=== PATIENT | female | born 1975 | race Caucasian/White ===

== ENCOUNTER 2018-10-01 05:38 | Inpatient (IN) | payer BC ==
[~2018-10-01] VITALS: Ht 172.7 cm; Wt 84.1 kg
[~2018-10-01 05:38] MED LIST: CeFAZolin 2 GM/DEXTROSE 50 ML IV ONE; RINGERS SOLUTION,LACTATED 1,000 ML IV ONE
[2018-10-01] MEDS ORDERED: CeFAZolin 2 GM/DEXTROSE 50 ML IV ONE (06:00)
[2018-10-01] MEDS ORDERED: RINGERS SOLUTION,LACTATED 1,000 ML IV ONE ×2 (06:00→08:28)
[2018-10-01] MEDS ORDERED: CALC-1038 PO (06:12)
[2018-10-01] MEDS ORDERED: GLUC100019 PO (06:12)
[2018-10-01] MEDS ORDERED: MAGN200T4 PO (06:12)
[2018-10-01] MEDS ORDERED: CHOL20004 PO (06:12)
[2018-10-01] MEDS ORDERED: LIDOCAINE 2%/EPI 1:200,000/PF 20 ML VIAL ONE (06:50)
[2018-10-01] MEDS ORDERED: BUPIVACAINE HCL/PF 0.5% 30 ML VIAL ONE (06:51)
[2018-10-01] MEDS ORDERED: ACETAMINOPHEN 1000 MG/ISO-OSM 100 ML IV ONE (07:52)
[2018-10-01] MEDS ORDERED: MEPERIDINE-PF 25 MG/ML VIAL IVP PRN (08:00)
[2018-10-01] MEDS ORDERED: OXYGEN THERAPY IH SCH (08:00)
[2018-10-01] MEDS ORDERED: BUPIVACAINE HCL/PF 0.25% 30 ML VIAL ONE (08:51)
[2018-10-01] MEDS ORDERED: BUPIVACAINE LIPOSOME/PF 1.3%-13.3MG/ML SUSPENSION 20 ML VIAL INJ ONE (09:00)
[2018-10-01] MEDS ORDERED: ACETAMINOPHEN 500 MG TABLET PO PRN (09:45)
[2018-10-01] MEDS ORDERED: MORPHINE SULFATE 4 MG/ML SYRINGE IVP PRN (09:45)
[2018-10-01] MEDS ORDERED: MEPERIDINE-PF 25 MG/ML VIAL ONE (10:00)
[2018-10-01] MEDS ORDERED: HYDROmorphone 2 MG/ML SYRINGE ONE (10:00)
[2018-10-01] MEDS: FentaNYL CITRATE-PF 100 MCG/2 ML VIAL IVP PRN ×2 (10:03→10:21)
[2018-10-01] MEDS ORDERED: FentaNYL CITRATE-PF 100 MCG/2 ML VIAL ONE (10:03)
[2018-10-01 11:59] VITALS: BP 122/87
[2018-10-01] MEDS ORDERED: ROCURONIUM BROMIDE 10 MG/ML 5 ML VIAL IVP ONE (12:00)
[2018-10-01] MEDS ORDERED: FentaNYL CITRATE-PF 100 MCG/2 ML VIAL IVP ONE (12:00)
[2018-10-01] MEDS ORDERED: SUCCINYLCHOLINE CHLORIDE 20 MG/ML 10 ML VIAL IVP ONE (12:00)
[2018-10-01] MEDS ORDERED: EPHEDrine SULFATE 50 MG/ML VIAL IM ONE (12:00)
[2018-10-01] MEDS ORDERED: DEXAMETHASONE SOD PHOS 4 MG/ML VIAL IVP ONE (12:00)
[2018-10-01] MEDS ORDERED: LIDOCAINE/PF 2% 5 ML SYRINGE IVP ONE (12:00)
[2018-10-01] MEDS ORDERED: MIDAZOLAM HCL 2 MG/2 ML VIAL IVP ONE (12:00)
[2018-10-01] MEDS ORDERED: KETOROLAC TROMETHAMINE 60 MG/2 ML VIAL IM ONE (12:00)
[2018-10-01] MEDS ORDERED: PROPOFOL 1% 20 ML VIAL IVP ONE (12:00)
[2018-10-01] MEDS ORDERED: ONDANSETRON HCL 4 MG/2 ML VIAL IVP ONE (12:00)
[2018-10-01] MEDS: IBUPROFEN 600 MG TABLET PO PRN ×2 (12:53→19:31)
[2018-10-01 15:48] VITALS: BP 110/61
[2018-10-01 19:50] VITALS: BP 130/68
[2018-10-02 00:07] VITALS: BP 116/58
[2018-10-02 04:20] VITALS: BP 131/75
[2018-10-02] MEDS: IBUPROFEN 600 MG TABLET PO PRN ×2 (04:43→10:22)
[2018-10-02 07:25] VITALS: BP 124/78
[2018-10-02 11:10] VITALS: BP 126/85
[2018-10-02] MEDS ORDERED: HYDR-4061 PO (11:17)
[2018-10-02] MEDS ORDERED: IBUP-2071 PO (11:19)
[2018-10-02] MEDS ORDERED: RANITIDINE HCL 150 MG TABLET PO ONE (13:15)
== END 2018-10-02 13:40 | disposition home or self-care (01) | DRG 355 ==
LOC: SURGERY 05:38 → 6N 05:39
PROVIDERS: ADMIT Surgery; ATTEND Surgery
PROC: 0WUF0JZ Supplement Abdominal Wall with Synthetic Substitute, Open Approach (ICD-10-PCS; principal; 2018-10-01 07:30)
DX: K43.6 Other and unspecified ventral hernia with obstruction, without gangrene (principal); Z96.641 Presence of right artificial hip joint; K43.0 Incisional hernia with obstruction, without gangrene; Z88.6 Allergy status to analgesic agent; Z90.710 Acquired absence of both cervix and uterus; Z90.722 Acquired absence of ovaries, bilateral; Z79.899 Other long term (current) drug therapy
CPT/HCPCS: 87081; 88302; C9290; G0238; G0378; J0131; J0330; J0690; J1100; J1170; J1885; J2175; J2250; J2270; J2405; J2704; J3010; J3490; J7120